=== PATIENT | female | born 1940 | race Caucasian/White ===

== ENCOUNTER 2025-02-22 14:17 | Inpatient (IN) | payer OTHER, SELFPAY ==
[2025-02-22] VITALS (19 sets, daily range): BP systolic 124–157; BP diastolic 56–90; BMI 26.9
[2025-02-22 11:11] LABS: Glucose - Point of Care 128 mg/dl (70-99)
[2025-02-22 11:40] LABS: Hematocrit 25.4 % (37.0-47.0); Hemoglobin 7.9 g/dL (12.0-16.0); Mean Corp Hgb Conc. 31.1 g/dL (33.0-37.0); Mean Corpuscular Volume 85.2 fL (81.0-99.0); Nucleated Red Blood Cells % 0 %; Platelet Count 359 10^3/uL (130-400); Red Cell Dist. Width 12.5 % (11.5-14.5)
[2025-02-22 11:56] LABS: ALT (SGPT) 14 U/L (0-35); AST (SGOT) 22 U/L (14-36); Albumin 4.5 g/dl (3.5-5.0); Alkaline Phosphatase 53 U/L (38-126); Blood Urea Nitrogen 20 mg/dl (7-17); Calcium 10.0 mg/dl (8.4-10.2); Carbon Dioxide 24 mmol/L (22-30); Chloride 105 mmol/L (98-107); Glucose 126 mg/dl (70-99); Potassium 4.5 mmol/L (3.5-5.1); Sodium 138 mmol/L (135-145); Total Protein 7.5 g/dl (6.3-8.2); eGFR > 60.00
[2025-02-22 12:00] LABS: COVID-19 Antigen Negative (Negative)
--- NOTE | 2025-02-22 13:08 | ED.GENMED ---
History of Present Illness
General
Chief Complaint: Weakness
Source: patient and family
Time Seen by Provider: 02/22/25 12:37
History of Present Illness
History of Present Illness:
Note:
CHIEF COMPLAINT(S)
Difficulty walking and maintaining balance.
HISTORY OF PRESENT ILLNESS
The patient is an 85-year-old female presenting with difficulty walking and maintaining balance, first noticed as a gradual onset of weakness. The symptoms became more pronounced a few days ago, with significant issues noted yesterday. The patient
reports that while seated, she feels stable, but upon standing, she experiences shakiness and loss of balance, leading to her sliding down to the floor. She denies falling completely, as she was holding on to prevent a fall. Her daughter has been
assisting her when these episodes occur.
The patient describes experiencing a strong odor from her urine and notes a history of hypokalemia. Recent blood work completed approximately one month ago was reportedly mostly normal, except for slightly off thyroid levels. No hemoglobin levels
from this work are available for comparison at present. The patient reported noticing black stools over a month ago following constipation, with the occurrence linked to laxative use, but no visible red blood in the stool.
The patient admits to taking an cgia-ogn-ujgqntn analgesic, Anacin, which is a combination of aspirin and caffeine, about a month and a half ago for headaches, usually at a dosage of one per day, occasionally two. She also recently started taking
Meloxicam. The clinical suspicion is that these medications may have contributed to gastrointestinal bleeding, causing the observed melena and resulting in acute anemia.
Additional findings from today include a significant drop in hemoglobin levels, registering at 7.9 g/dL compared to previous recordings of 15 g/dL six years ago, consistent with significant anemia. The patient describes feeling pale today and
reports having headaches, neck discomfort, and ear pain.
ADDITIONAL HISTORY OBTAINED FROM SOURCES OTHER THAN THE PATIENT
Per the patients daughter, the patient was noted to be nervous and shaky when walking, with observed balance issues. A strong urine odor was also noted.
EXTERNAL RECORDS REVIEWED
Previous lab results indicate the patients hemoglobin was 15 g/dL six years ago. Current hemoglobin is documented at 7.0 g/dL. Results from recent lab work are pending from her primary physician; contact is underway to obtain these results.
SOCIAL HISTORY
The patient has reported black stools over the past month and has been taking aspirin-containing medications. She has a supportive family member assisting with daily activities due to current mobility challenges.
MEDICATIONS
- Anacin (aspirin and caffeine), usually one per day, occasionally two.
- Meloxicam, recently started.
REVIEW OF SYSTEMS
- Neurological: Shaky and unsteady when standing; feels 'shaky.'
- Gastrointestinal: Reports black stools for over a month, constipation, no red blood in stools.
- Cardiovascular: No chest pain, but reported feeling much better while sitting.
- General: Reports fatigue and weakness.
PHYSICAL EXAM
- General: Alert, no acute distress. Pale appearance.
- Skin: Warm, dry. Conjunctivae noted to be pale.
- Cardiovascular: Regular rhythm, without murmur.
- Respiratory: Non-labored breathing.
- Gastrointestinal: Abdomen soft, non-tender.
- Rectal: Presence of melena confirmed.
- Neurological: Alert and oriented to person, place, time, and situation.
PROBLEM LIST
- Acute Anemia secondary to gastrointestinal bleeding.
- Melena.
PLAN
1. Admit the patient for overnight observation.
2. Obtain blood transfusion to address anemia.
3. Discontinue Aspirin-containing products (Anacin) and Meloxicam.
4. Administer proton pump inhibitors or similar medications to reduce gastric acid and protect against further gastrointestinal bleeding.
5. Consult Gastroenterology for possible endoscopy to evaluate for bleeding sites in the gastrointestinal tract.
6. Monitor hemoglobin levels closely.
7. Attempt to obtain previous lab results from the patients primary care physician to compare hemoglobin levels.
8. Urinalysis to assess the strong urine odor.
DIFFERENTIAL DIAGNOSIS
The Differential Diagnosis includes, in no particular order and is not limited to:
1. Gastrointestinal bleeding due to peptic ulcer disease.
2. Gastric carcinoma.
3. Dunia-Jean tear.
4. Esophageal varices.
5. Diverticular bleeding.
6. Hemorrhoids (though less likely given the melena).
7. Gastritis secondary to nonsteroidal anti-inflammatory drug use.
8. Iron deficiency anemia.
9. Anemia of chronic disease.
10. Renal insufficiency contributing to electrolyte disturbances.
CARE-UPDATE
02/22/25 - 13:19
Reviewed previous records indicating that the patients hemoglobin was 11.0 in early January 2025.
Disposition:
SUMMARY OF ENCOUNTER
An 85-year-old female presented with progressive weakness, particularly when standing or attempting to walk. A rectal exam confirmed melena. She has a history of taking aspirin daily for headaches, sometimes more than once a day, in addition to
recently starting meloxicam. Her hemoglobin levels have decreased from 15 g/dL (years ago) to 11 g/dL in January, and currently measure at 7.9 g/dL. The management plan includes transfusion of two units of blood and initiation of an intravenous
proton pump inhibitor drip to address gastrointestinal bleeding.
DISPOSITION
Admit for overnight observation and management.May benefit from GI consult
ASSESSMENT
The patient presents with acute anemia secondary to suspected gastrointestinal bleeding, likely exacerbated by chronic NSAID use.
EMERGENCY TREATMENTS ADMINISTERED
Initiated IV proton pump inhibitor drip.
MANAGEMENT OF THE PATIENTS CARE WAS DISCUSSED WITH
The hospitalist was consulted for admission and management.
PLAN
1. Administer a blood transfusion with two units to address severe anemia.
2. Discontinue aspirin and meloxicam to prevent further gastrointestinal bleeding.
3. Intravenous proton pump inhibitor therapy is initiated.
4. Consultation with Gastroenterology for potential endoscopy.
INDEPENDENT REVIEW OF LABS AND INTERPRETATION OF TESTS
My independent review of hemoglobin indicates a significant drop to 7.9 g/dL, consistent with anemia and prior low levels of 11 g/dL in January.
FOLLOW-UP INSTRUCTIONS
Follow-up care with primary care physician and Gastroenterology post-discharge to monitor hemoglobin levels and further evaluate gastrointestinal bleeding.
MEDICATION RECONCILIATION
Aspirin use is to be discontinued.
Meloxicam is to be discontinued.
Initiated proton pump inhibitor drip.
MEDICAL DECISION MAKING
-Number and Complexity of Problems Addressed: Chronic conditions affecting care include gastrointestinal bleeding, hypokalemia, and the potential anemia linked to nonsteroidal anti-inflammatory drug use.
-Data:
Category 1
External records reviewed: Previous records indicate hemoglobin of 11.0 g/dL in January.
Reviewed clinical information obtained from the patients daughter regarding observed symptoms.
Category 3
Discussion of management with the hospitalist for admission and coordination of care.
-Risk:
Prescription medication was prescribed; proton pump inhibitor therapy was initiated to prevent further gastrointestinal complications.
DIAGNOSIS
1. Acute blood loss anemia, likely due to gastrointestinal bleeding (ICD-10: D62).
2. Melena (ICD-10: K92.1).
3. NSAID use
Past History
Past History
ED Past Medical History: GERD, Hypercholesterolemia, Hyperthyroidism and Other (urethral prolapse, ataxia (unknown cause)); Negative CVA, HTN or NIDDM
ED Past Surgical History: Negative Cardiac
Social History
Tobacco: Non-smoker
Alcohol: None
Drug: None
Personal: Single
Living: with family
Employment: Not employed
Family History
Family History: Hypertension
Phy Exam
Physical Exam
Physical Exam:
.
Course
Orders/Labs/Results
Orders:
Orders
02/22/25 11:23
COVID-19 Antigen Urgent
Source: Nasal Swab
Complete Blood Count/With Diff Urgent
Comprehensive Metabolic Panel Urgent
Influenza A+B Rapid Molecular Urgent
BON Source: Nasal Swab
Specimen Description:
02/22/25 12:37
Type+Screen Urgent
Urinalysis Reflex To Culture Urgent
Date Specimen was Collected: 02/22/25
Time Specimen was Collected: 13:19
02/22/25 13:07
* Blood Bank Products Routine
Blood Bank Products: *Packed RBC Leuko (PRBC's
Quantity: 2
Transfuse Today: Yes
Reason: Anemia
IV Insert/Care/Rem.- Treatment PRN
02/22/25 13:08
Pantoprazole 80 mg/100 ml Nss [Protonix] 80 mg in 100 ml IV NOW
Pantoprazole [Protonix IV] 80 mg IV NOW STA
02/22/25 13:10
Cardiac Monitoring- Treatment ONCE
02/22/25 13:11
Electrocardiogram (*1) Urgent
Reason for Study: Fatigue / Weakness
EKG- Treatment ONCE
Abnormal Lab Results
02/22/25 02/22/25
11:09 11:23
RBC 2.98 L 10^6/uL
(4.20-5.40)
Hgb 7.9 L g/dL
(12.0-16.0)
Hct 25.4 L %
(37.0-47.0)
MCH 26.5 L pg
(27.0-31.0)
MCHC 31.1 L g/dL
(33.0-37.0)
Abs Immat Gran (auto) 0.1 H 10^3/uL
(0-0.05)
Absolute Lymphs (auto) 1.0 L 10^3/uL
(1.2-3.4)
Immature Gran % 0.7 H %
(0-0.5)
Neutrophils % 77.4 H %
(42.2-75.2)
Lymphocytes % 14.0 L %
(20.5-51.1)
BUN 20 H mg/dl
(7-17)
Glucose 126 H mg/dl
(70-99)
POC Glucose 128 H mg/dl
(70-99)
02/22/25 11:23
02/22/25 11:23
Vital Signs
Initial and Last Documented VS:
Initial Vital Signs
Temp Pulse Resp BP Pulse Ox
97.7 F 87 18 126/66 99
02/22/25 11:06 02/22/25 11:06 02/22/25 11:06 02/22/25 11:06 02/22/25 11:06
Last Documented Vital Signs
Temp Pulse Resp BP Pulse Ox
97.8 F 87 18 126/66 99
02/22/25 13:14 02/22/25 11:06 02/22/25 11:06 02/22/25 11:06 02/22/25 13:10
*Pulse Oximetry
SaO2: 99
Oxygen Mode of Delivery: Room air
Patient hypoxic: no
*Critical Care Note
Total Time (30-74mins, 75-104mins- exclusive of procedures): Not Applicable
ED Attending Note
-
Portions of this chart may have been created with voice recognition software.� Occasional wrong word or��sound alike� substitutions may have occurred due to the inherent limitations of voice recognition software.
Discharge Plan
Departure
Patient Disposition: Admit
Date of Disposition: 02/22/25
Time of Disposition: 13:15
Admit to: Telemetry
Presentation/result/management discussed w/ accepting MD/DO: Hospitalist
Discharge Problem:
Symptomatic anemia, NSAID long-term use, GI bleed
Prescriptions:
No Action
polyethylene glycol 3350 17 GRAMS powder in packet
17 grams PO PRN PRN (Reason: constipation)
Multivitamin
1 tab PO DAILY
Synthroid:
125 mcg PO DAILY
nitrofurantoin macrocrystal 50 MG capsule
50 mg PO TID
simvastatin 40 MG tablet
40 mg PO HS
aspirin 81 MG tablet,chewable
81 mg PO DAILY
omeprazole magnesium [Prilosec OTC] 20 MG tablet,delayed release (DR/EC)
20 mg PO DAILY
Interventions
Interventions:
*Risk Screen - Suicide Last Done: 02/22/25 11:07
*General Assessment Last Done: 02/22/25 11:07
*Neglect/Abuse Screening Last Done: 02/22/25 11:07
*ED COVID-19 Vaccine History Last Done: 02/22/25 11:07
*ED Influenza Vaccine History Last Done: 02/22/25 11:07
Discharge Date and Time
Print Language: FAROESE
[2025-02-22] MEDS: PROTONIX IV 80 MG IV (13:52)
[2025-02-22] MEDS: PROTONIX 100 IV (13:52)
--- NOTE | 2025-02-22 14:05 | HPS.HSE ---
Family Physician
-
Family Physician: NOT KNOW UNKNOWN - PT DOES
Chief Complaint
-
weakness
History of Present Illness
85-year-old female past medical history of TIA, hyperlipidemia, hypothyroidism, hypertension, presenting with difficulty walking and maintaining balance and weakness. Symptoms became more pronounced a few days ago. With standing she experiences
shakiness and loss of balance leading to sliding down to the floor. Denies falling completely. She has been having a strong odor from the urine.
Patient had blood work a month ago showing slightly abnormal thyroid levels.
Patient had black stools a month ago followed by constipation. Patient was taking gzkd-suo-fjykqnu analgesic Anacin which is a combination of aspirin and caffeine a month and a half ago for headaches once a day occasionally 2. She recently also
started taking meloxicam.
No prior EGD or colonoscopy
Patient describes feeling pale today and having headache, neck discomfort and ear pain. No abdominal pain.
Does not smoke or drink alcohol.
No family history of GI bleeding.
Medical History
Past Medical History
Past Medical History: Reports Other (TIA, hyperlipidemia, hypothyroidism, hypertension)
Past Surgical History: Reports None
Social History
Tobacco: Non-smoker
Alcohol: None
Drug: None
Family History
Family History: Not pertinent
Allergies / Home Medications
Allergies reflects when Allergies were last updated in [email or web address].
Home Medications with original date entered in [email or web address]
Allergy/Medication List:
Allergies
Allergy/AdvReac Type Severity Reaction Status Date / Time
No Known Allergies Allergy Unverified 04/03/13 14:27
Home Medications
Multivitamin 1 tab PO DAILY 05/12/12
Synthroid: 125 mcg PO DAILY 05/12/12
polyethylene glycol 3350 17 gram oral powder packet 17 grams PO PRN PRN constipation 05/12/12
aspirin 81 mg chewable tablet 81 mg PO DAILY 04/03/13
nitrofurantoin macrocrystal 50 mg capsule 50 mg PO TID 04/03/13
omeprazole magnesium 20 mg tablet,delayed release (Prilosec OTC) 20 mg PO DAILY 04/03/13
simvastatin 40 mg tablet 40 mg PO HS 04/03/13
Review of Systems
-
History Source: Patient
A 12 point ROS was completed and negative except as noted: Yes
Constitutional: Reports No Symptoms
EENT: Reports No Symptoms
Respiratory: Reports No Symptoms
Cardiac: Reports No Symptoms
Abdomen/GI: Reports See HPI
: Reports No Symptoms
Musculoskeletal: Reports No Symptoms
Skin: Reports No Symptoms
Neurological: Reports No Symptoms
Endocrine: Reports No Symptoms
Hematologic/Lymphatic: Reports No Symptoms
Psych: Reports No Symptoms
Physical Exam
Vital Signs
Vital Signs
Temp Pulse Resp BP Pulse Ox
97.8 F 87 18 126/66 99
02/22/25 13:14 02/22/25 11:06 02/22/25 11:06 02/22/25 11:06 02/22/25 13:10
Physical Exam
General: Well Developed, Well Nourished and No Apparent Distress
HEENT: NormoCephalic, Moist mucous membranes and Atraumatic
Respiratory: Clear
Cardiac: S1/S2 and Regular Rhythm; No Murmur or Rub
GI: Soft, Non Tender, Non Distended and Normal Bowel Sounds; No Organomegaly
Rectal: Deferred by Provider
Musculoskeletal: No Clubbing, No Cyanosis and No Edema
Skin: No Rash
Neuro: Nonfocal/grossly intact
Laboratory Results
-
02/22/25 11:23
02/22/25 11:23
Laboratory Results
Total Bilirubin 0.5 mg/dl (0.2-1.3) 02/22/25 11:23
AST 22 U/L (14-36) 02/22/25 11:23
ALT 14 U/L (0-35) 02/22/25 11:23
Alkaline Phosphatase 53 U/L (38-126) 02/22/25 11:23
Data Reviewed
-
Lab Data: Labs Reviewed by me
Old Records: Reviewed
Impression/Plan
-
IMPRESSION:
PLAN:
# Normocytic anemia secondary to symptomatic blood loss anemia from upper GI bleeding from recent aspirin/meloxicam use
- 2 units of blood
- Check iron studies, B12
- Protonix 40 twice daily
- Clear liquid diet
-Hold aspirin, NSAIDs
- GI consulted
# Malodorous urine
- Urinalysis pending
History of TIA
- Continue statin
Hyperlipidemia
Hypothyroidism
- Continue levothyroxine
Essential hypertension
Uterine prolapse with pessary
Full code
DVT prophylaxis�SCDs
Clear liquid diet
--- NOTE | 2025-02-22 15:13 | CON.GI ---
Addendum entered and electronically signed by Kristan Hernandez DO 02/22/25 15:54:
The patient was seen and examined by me independently in collaboration with the nurse practitioner.
Past medical history/social history/medications/allergies/family history reviewed.
Lab data and imaging data reviewed.
Briefly, Deisy Fish is an 85 y.o female with pmhx HTN, GERD on omperazole (no prior EGD), HLD, hx TIA who presents with symptomatic anemia, hgb found to be 7.9, down from 11 on 01/14. BUN mildly elevated to 20. She reports constipation, but last
stool was black, about 3 days ago. She admits to taking Meloxicam recently.
c/f UGIB likely 2/2 PUD vs. erosive gastritis/dudoenitis vs. AVM vs. diuealfoy vs. other
2 large peripheral Gauge IVs
Received 1 unit PRBC in ER
Active T&C
PPI gtt
IVF
Keep NPO for EGD today
Discussed with daughter at bedside.
Original Note:
Consultation
-
Date/Time Consultation Requested: 02/22/25 1430
Date/Time Consultation Performed: 02/22/25 1515
Requesting Provider: Roger Elliott MD
Performing Provider: BREANNA Gorman, Pam Hernandez DO
Reason for Consultation: GI bleed
Medical History
Chief Complaint / HPI
Chief Complaint: black stools weakness
History of Present Illness:
Pt is an 85o with hx HTN, Hyperlipidemia, GERD on chronic Omeprazole, TIA, with recent start of Meloxicam along with taking Tylenol and Anacin for headache and joint pain. She admits to dizziness with weakness and constipation a few days ago and
noting recent black stools with last stool 3 days ago. She has chronic GERD and admits to dysphagia which started today but denies odynophagia, nausea, vomiting, abdominal pain, diarrhea or red stools. NO hx EGD or colonoscopy in past. prior hbg
11 on 01/14 and now 7.9 on admission. Rectal in ER with melena.
Past Medical History
Past Medical History: CVA (TIA), GERD, HTN, Hypercholesterolemia and Other (gait dysfunction, migraines, anxiety )
Social History
Tobacco: Non-Smoker
Alcohol: None
Drug: None
Living: With Family
Employment: Retired
Family History
Family History: Other (no family hx GI malignancies )
Allergies / Home Medications
Allergy/AdvReac Type Severity Reaction Status Date / Time
No Known Allergies Allergy Unverified 04/03/13 14:27
�Medication �Instructions �Recorded
Multivitamin 1 tab PO DAILY 05/12/12
Synthroid: 125 mcg PO DAILY 05/12/12
polyethylene glycol 3350 17 gram 17 grams PO PRN PRN constipation 05/12/12
oral powder packet
aspirin 81 mg chewable tablet 81 mg PO DAILY 04/03/13
nitrofurantoin macrocrystal 50 mg 50 mg PO TID 04/03/13
capsule
omeprazole magnesium 20 mg 20 mg PO DAILY 04/03/13
tablet,delayed release (Prilosec
OTC)
simvastatin 40 mg tablet 40 mg PO HS 04/03/13
Review of Systems
-
History Source: Patient and Family
Constitutional: Reports Weight Gain (slight gain )
EENT: Reports No Symptoms
Respiratory: Reports No Symptoms
Abdomen/GI: Reports Abdominal Pain
: Reports Other (foul smelling urine )
Musculoskeletal: Reports Joint Pain
Neurological: Reports Dizzy, Headache and Weakness
Endocrine: Reports No Symptoms
Hematologic/Lymphatic: Reports Bleeding
Vital Signs
Temp Pulse Resp BP Pulse Ox
98.3 F 85 18 145/69 99
02/22/25 14:57 02/22/25 14:57 02/22/25 14:57 02/22/25 14:57 02/22/25 14:57
Physical Exam
Exam
General: Other (pale appearing )
HEENT: Normocephalic and Anicteric
Respiratory: Clear
Cardiac: Regular Rhythm
GI: Soft, Non Tender and Non Distended
Rectal: Other (melena )
Musculoskeletal: No Clubbing and No Cyanosis
Skin: Warm and Dry
Neuro: Awake, Alert and AO x 3
Psych: Calm
Results
WBC 6.8 10^3/uL (4.8-10.8) 02/22/25 11:23
Hgb 7.9 g/dL (12.0-16.0) L 02/22/25 11:23
Hct 25.4 % (37.0-47.0) L 02/22/25 11:23
MCV 85.2 fL (81.0-99.0) 02/22/25 11:23
Plt Count 359 10^3/uL (130-400) 02/22/25 11:23
Absolute Neuts (auto) 5.2 10^3/uL (1.4-6.5) 02/22/25 11:23
Sodium 138 mmol/L (135-145) 02/22/25 11:23
Potassium 4.5 mmol/L (3.5-5.1) 02/22/25 11:23
Chloride 105 mmol/L (98-107) 02/22/25 11:23
Carbon Dioxide 24 mmol/L (22-30) 02/22/25 11:23
BUN 20 mg/dl (7-17) H 02/22/25 11:23
Creatinine 0.9 mg/dL (0.6-1.0) 02/22/25 11:23
Calcium 10.0 mg/dl (8.4-10.2) 02/22/25 11:23
Total Bilirubin 0.5 mg/dl (0.2-1.3) 02/22/25 11:23
AST 22 U/L (14-36) 02/22/25 11:23
ALT 14 U/L (0-35) 02/22/25 11:23
Alkaline Phosphatase 53 U/L (38-126) 02/22/25 11:23
Diagnostic Image Results:
Prior GI Procedures:
EGD: none
Colonoscopy: none
Assessment / Plan
-
Pt is an 85o with hx HTN, Hyperlipidemia, GERD on chronic Omeprazole, TIA, with recent start of Meloxicam along with taking Tylenol and Anacin for headache and joint pain. She admits to dizziness with weakness and constipation a few days ago and
noting recent black stools with last stool 3 days ago. She has chronic GERD and admits to dysphagia which started today but denies odynophagia, nausea, vomiting, abdominal pain, diarrhea or red stools. NO hx EGD or colonoscopy in past. prior hbg
11 on 01/14 and now 7.9 on admission. Rectal in ER with melena
-anemia with drop in hbg over last month
-melena
-recent start of Meloxicam
-GERD on chronic PPI
other med problems:
HTN, Hyperlipidemia, GERD on chronic Omeprazole, hypercholesterolemia, TIA
PLAN:
etiology of melena and anemia related to PUD with recently started Meloxicam with anacin vs ectasia, vs mass vs other
plan for EGD today
transfusion running now
NPO- last atet 9:30 AM
NSAID avoidance
PPI
trend hbg
family updated
-
-
Thank you for consultation and allowing me to participate in the patient's care. Please call the oncology consultant GI physician during the after hours with any questions or concerns.
--- NOTE | 2025-02-22 15:15 | CM ---
Chart reviewed and spoke with pt and dtr Ella at ED bedside
Lives in a 2 story home with dtr Ella [address] 1st floor set up
Pivots to w/c for ambulation. Dtr assists at home
DME walker , w/c and toilet rails, shower chair
PCP Dr. Jennifer Jhaveri
dtr notified PCP about admission
RX plan yes
Pharmacy [facility] in [place]
[facility] ; dtr would like to use them again
no hx of SNF
CM will follow up with any dcp needs
[2025-02-22 15:43] LABS: Iron < 20 ug/dl (37-170)
[2025-02-22 15:50] LABS: Total Iron Binding Capacity 514 ug/dl (265-497)
[2025-02-22 16:21] LABS: Ferritin 9.3 ng/ml (11.1-264.0)
[2025-02-22 16:36] LABS: Vitamin B12 671 pg/ml (239-931)
--- NOTE | 2025-02-22 18:39 | TRANSFER ---
pt arrived from PACU aftr EGD with blood transfusing (1st unit), and protonix gtt. VSS. pt AAOx3, no complaints.
[2025-02-22] MEDS: ANESTHETIC LOZENGE 1 LOZENGE PO ×2 (19:06→22:54)
[2025-02-23] MEDS: TYLENOL 650 MG PO ×2 (00:09→09:44)
[2025-02-23 04:01] VITALS: BP 131/78
[2025-02-23 07:30] VITALS: BP 134/78
--- NOTE | 2025-02-23 07:30 | W.PN.HOSP.TC ---
Addendum entered and electronically signed by Juan R Mccoy MD 02/23/25 14:34:
Attending�addendum: Patient was seen on 02/22/2025.
I saw and evaluated the patient. I reviewed the resident�s note and agree with findings and plan as documented in the resident�s note. Patient admitted with Gi bleeding S/P EGD yesterday
Physical�exam:
GENERAL : Patient is awake, alert, oriented x3
HEENT: Nonicteric sclerae, PERRLA, EOMI. Oropharynx clear. Moist mucous membranes. Conjunctivae appear well perfused.
CHEST: Chest wall is nontender.
HEART: Regular rate and rhythm without murmurs.
LUNGS: Clear to auscultation bilaterally.
ABDOMEN: Soft, positive bowel sounds, nontender, no organomegaly.
RECTAL: Deferred.
MUSCLES/EXTREMITIES: No abnormal range of motion, no swelling.SKIN: No rash, no excessive bruising, petechiae, or purpura.
NEUROLOGIC: Cranial nerves II-XII intact without motor/sensory deficit.
�
Assessment/plan:
Lower GI bleeding.
S/P EGD shows: torturous esophagus, large hiatal hernia with a few Siva ulcers that were treated with thermal therapy, a few recently bleeding angioectasias of the stomach treated with argon plasma, a few gastric polyps, nonbleeding gastric
ulcers with no stigmata of bleeding, normal first portion of the duodenum and second portion of the duodenum, tongue of abnormal mucosa found just inferior to the gastroesophageal junction which appeared to be irritated but with no active bleed.
GI signed off
protnonix
Acute blood loss anemia
-Sore throat:
History of TIA:
Continue statin
Hyperlipidemia:
Hypothyroidism:
Continue levothyroxine
Essential hypertension:
FULL CODE STATUS
DVT prophylaxis�SCDs
Stress ulcer prophylaxis: Protonix
�
Total time spent on today�s encounter was 55 minutes which included time spent in counseling the patient/family regarding diagnosis and treatment plan as listed above, goals of care, and symptom management. Case was discussed with nursing staff,
specialists, and care coordinators/case management. All labs and imaging personally reviewed by me. Remainder the time spent in detailed review of previous records, lab data, imaging, and other medical provider documentation.
Original Note:
Today's Communication/Plan
-
Prochlorperazine given for GI upset
Ferrous sulfate given for iron deficiency anemia
Benzocaine/menthol lozenge given for sore throat following EGD
Assessment / Plan
Assessment / Plan
Assessment/Plan:
-Normocytic anemia secondary to symptomatic blood loss anemia from upper GI bleeding from recent aspirin/meloxicam use: Stable/monitoring
-Iron deficiency anemia: Stable/monitoring
2 units of blood given in ED
Patient has low iron with a value less than 20 and a TIBC of 514 indicating iron deficiency anemia
Vitamin B12 normal at 671 on 02/22/2025
Protonix 40 twice daily
Clear liquid diet
Hold aspirin, NSAIDs
GI consulted - appreciate GI reccomendations -gastroenterology believe that this patient likely had an upper GI bleed secondary to peptic ulcer disease versus erosive gastritis/duodenitis versus AVM versus diuealfoy, vs other. They recommended
that the patient undergo an EGD
EGD conducted on 02/22/2025 showed a torturous esophagus, large hiatal hernia with a few Siva ulcers that were treated with thermal therapy, a few recently bleeding angioectasias of the stomach treated with argon plasma, a few gastric polyps,
nonbleeding gastric ulcers with no stigmata of bleeding, normal first portion of the duodenum and second portion of the duodenum, tongue of abnormal mucosa found just inferior to the gastroesophageal junction which appeared to be irritated but with
no active bleed.
Following EGD gastroenterology recommended clear liquids and if hemoglobin was stable to advance to a low residue diet if the patient was able to tolerate clear liquid
Oral iron supplementation given
PPI will be IV twice daily, then will transition to oral twice daily for 8 weeks, then daily - as per GI recommendations
-Sore throat: Stable/monitoring
Patient has a sore throat likely secondary to recent endoscopy procedure
-Malodorous urine: Stable/monitoring
Urinalysis pending
Culture negative
History of TIA: Stable/monitoring
Continue statin
Hyperlipidemia: Stable/monitoring
Hypothyroidism: Stable/monitoring
Continue levothyroxine
Essential hypertension: Stable/monitoring
Uterine prolapse with pessary: Stable/monitoring
FULL CODE STATUS
DVT prophylaxis�SCDs
Stress ulcer prophylaxis: Protonix
Imaging: N/A
Procedures:
- Endoscopy procedure conducted on 02/22/2025:
Tortuous esophagus.
Large hiatal hernia with a few Siva ulcers. Treated with thermal therapy.
A few recently bleeding angioectasias in the stomach. Treated with argon plasma coagulation (APC).
A few gastric polyps.
Non-bleeding gastric ulcers with no stigmata of bleeding.
Normal first portion of the duodenum and second portion of the duodenum.
One tongue of abnormal mucosa found just inferior to the GE junction, appeared to be irritated mucosa. No ulcer bed. Not biopsied in setting of active bleeding.
No specimens collected.
Anticipated Discharge: 24 - 48 hours
Subjective/Interval History
-
Date of Service: February 23, 2025
Met with patient at the bedside. Overall she is doing well and offers no complaints at the present time. She was hungry and hoping to eat breakfast but had not received her breakfast quite yet. I recommended that she order something from the
clear liquid diet and that if she tolerated her diet we will advance her to a low residue diet.
Objective Data
-
Labs:
Laboratory Results
02/23/25
07:30
WBC 6.4
Hgb 9.4 L
Hct 28.4 L
Plt Count 296
Sodium 137
Potassium 4.2
Chloride 108 H
Carbon Dioxide 24
BUN 14
Creatinine 0.8
Glucose 95
Calcium 9.0
Total Bilirubin 0.8
AST 21
ALT 11
Alkaline Phosphatase 53
Vital Signs:
Vital Signs
Temp Pulse Resp BP Pulse Ox
98.8 F 85 16 117/65 93
02/23/25 11:55 02/23/25 11:55 02/23/25 11:55 02/23/25 11:55 02/23/25 11:55
I&O
02/22/25 02/23/25 02/24/25
06:59 06:59 06:59
Intake Total 500 / 500
Balance 500 / 500
Review of Systems
-
History Source: Patient
Constitutional: Reports No Symptoms
Respiratory: Reports No Symptoms
Cardiac: Reports No Symptoms
Abdomen/GI: Reports No Symptoms
Breast: Reports No Symptoms
Genitourinary: Reports No Symptoms
Musculoskeletal: Reports No Symptoms
Skin: Reports No Symptoms
Neuro: Reports No Symptoms
Endocrine: Reports No Symptoms
Hematologic / Lymphatic: Reports No Symptoms
Physical Exam
-
General: Well Developed and No Apparent Distress
HEENT: Normocephalic, Atraumatic and Moist Mucous Membranes
Respiratory: Clear to Auscultation
Cardiac: Regular Rhythm and S1/S2; Negative Murmur, Rub or Gallop
GI: Soft, Nontender, Nondistended and Normal Bowel Sounds; Negative Organomegaly
Rectal: Deferred by Provider
Musculoskeletal: No Cyanosis and No Edema
Skin: Negative Rash
Neuro: Nonfocal/Grossly Intact
[2025-02-23] MEDS: FEOSOL 325 MG PO (07:49)
[2025-02-23] MEDS: PROTONIX IV 40 MG IV ×2 (07:49→20:51)
[2025-02-23] MEDS: NSS (PRESERVATIVE FREE) 10 ML IV ×2 (07:50→20:51)
[2025-02-23 08:10] LABS: Hematocrit 28.4 % (37.0-47.0); Hemoglobin 9.4 g/dL (12.0-16.0); Mean Corp Hgb Conc. 33.1 g/dL (33.0-37.0); Mean Corpuscular Volume 85.5 fL (81.0-99.0); Nucleated Red Blood Cells % 0 %; Platelet Count 296 10^3/uL (130-400); Red Cell Dist. Width 13.3 % (11.5-14.5)
[2025-02-23 08:45] LABS: ALT (SGPT) 11 U/L (0-35); AST (SGOT) 21 U/L (14-36); Albumin 3.7 g/dl (3.5-5.0); Alkaline Phosphatase 53 U/L (38-126); Blood Urea Nitrogen 14 mg/dl (7-17); Calcium 9.0 mg/dl (8.4-10.2); Carbon Dioxide 24 mmol/L (22-30); Chloride 108 mmol/L (98-107); Estimated Creatinine Clearance 43 ml/min; Glucose 95 mg/dl (70-99); Potassium 4.2 mmol/L (3.5-5.1); Sodium 137 mmol/L (135-145); Total Protein 6.4 g/dl (6.3-8.2); eGFR > 60.00
[2025-02-23] MEDS: ANESTHETIC LOZENGE 1 LOZENGE PO (09:44)
[2025-02-23 11:55] VITALS: BP 117/65
[2025-02-23 15:09] LABS: Urine Character Clear (Clear)
[2025-02-23] MEDS: FERRLECIT 110 MG IV (15:13)
[2025-02-23 15:17] LABS: Urine Red Blood Cell 0-2 /HPF (0-2); Urine White Cell 26-30 /HPF (0-5)
[2025-02-23 15:52] VITALS: BP 134/78
[2025-02-23 19:53] VITALS: BP 146/83
[2025-02-23 23:25] VITALS: BP 151/79
[2025-02-24 03:15] VITALS: BP 158/74
--- NOTE | 2025-02-24 04:27 | PTCARENOTE ---
Pt took off heart monitor for the second time in a half hour. When I went to go put it back on, pt stated that she wanted it off and that 'there's nothing wrong with my heart, I don't want it on, you can tell the Doctor.' [place] Provider Kaylee
Millie notified.
--- NOTE | 2025-02-24 04:41 | W.PN.UPDATE ---
Update Note
Progress Note Update
pt refusing heart monitor
[2025-02-24] MEDS: NSS (PRESERVATIVE FREE) 10 ML IV ×2 (07:23→20:46)
[2025-02-24] MEDS: PROTONIX IV 40 MG IV ×2 (07:23→20:51)
[2025-02-24] MEDS: FEOSOL 325 MG PO (07:24)
[2025-02-24 07:25] VITALS: BP 149/98
[2025-02-24] MEDS: STERILE WATER FOR INJECTION 10 ML IV (09:30)
[2025-02-24] MEDS: ROCEPHIN 1000 MG IV (09:30)
--- NOTE | 2025-02-24 10:43 | W.PN.HOSP.TC ---
Today's Communication/Plan
-
Advance diet to low residual diet.
IV iron
Assessment / Plan
Assessment / Plan
Impression:
85-year-old female past medical history of TIA, hyperlipidemia, hypothyroidism, hypertension, presenting with difficulty walking and maintaining balance and weakness. Symptoms became more pronounced a few days ago. With standing she experiences
shakiness and loss of balance leading to sliding down to the floor. Denies falling completely. She has been having a strong odor from the urine. Patient had black stools a month ago followed by constipation. Patient was taking [id number]
analgesic Anacin which is a combination of aspirin and caffeine a month and a half ago for headaches once a day occasionally 2. She recently also started taking meloxicam.
Admitted under hospitalist service, seen by GI, underwent EGD, status post blood transfusion, also started Rocephin for UTI.
Assessment/Plan:
Acute blood loss anemia secondary to GI bleeding
Iron deficiency anemia
upper GI bleeding from recent aspirin/meloxicam use.
Status post 2 units of blood transfusion.
Patient has low iron with a value less than 20 and a TIBC of 514 indicating iron deficiency anemia
Vitamin B12 normal at 671 on 02/22/2025
Protonix 40 twice daily
Clear liquid diet--> advance to full--> advance to low residue
Hold aspirin, NSAIDs
Status post EGD showed:
torturous esophagus, large hiatal hernia with a few Siva ulcers that were treated with thermal therapy, a few recently bleeding angioectasias of the stomach treated with argon plasma, a few gastric polyps, nonbleeding gastric ulcers with no
stigmata of bleeding, normal first portion of the duodenum and second portion of the duodenum, tongue of abnormal mucosa found just inferior to the gastroesophageal junction which appeared to be irritated but with no active bleed.
GI signed off
Acute UTI
Continue Rocephin.
Pending Culture
Acute metabolic encephalopathy.
Secondary to sepsis/UTI
Slightly improved
Sore throat:
Possible secondary to endoscopy.
Improved.
Hyperlipidemia
Continue statin
Hypothyroidism
Continue levothyroxine
CODE STATUS: Full code
DVT prophylaxis: SCDS
Diet: Regular diet
Family communication: Discussed with daughter Ella is the phone
Disposition: Advance diet to low residual diet.
IV iron
Total time spent on today's encounter was 55 minutes which included time spent in counseling the patient/family regarding diagnosis and treatment plan as listed above, goals of care, and symptom management. Case was discussed with nursing staff,
specialists, and care coordinators/case management. All labs and imaging personally reviewed by me. Remainder the time spent in detailed review of previous records, lab data, imaging, and other medical provider documentation.
Anticipated Discharge: Within 24 hours
Subjective/Interval History
-
Date of Service: February 24, 2025
Objective Data
-
Labs:
Laboratory Results
02/24/25
10:36
WBC Pending
Hgb Pending
Hct Pending
Plt Count Pending
Sodium Pending
Potassium Pending
Chloride Pending
Carbon Dioxide Pending
BUN Pending
Creatinine Pending
Glucose Pending
Calcium Pending
Vital Signs:
Vital Signs
Temp Pulse Resp BP Pulse Ox
98.1 F 112 18 149/98 97
02/24/25 07:25 02/24/25 07:25 02/24/25 07:25 02/24/25 07:25 02/24/25 07:25
I&O
02/23/25 02/24/25 02/25/25
06:59 06:59 06:59
Intake Total 500 / 500 1500 / 1500
Balance 500 / 500 1500 / 1500
[2025-02-24] MEDS: DULCOLAX 10 MG RECTAL (11:07)
[2025-02-24 11:25] LABS: Blood Urea Nitrogen 12 mg/dl (7-17); Calcium 9.3 mg/dl (8.4-10.2); Carbon Dioxide 22 mmol/L (22-30); Chloride 109 mmol/L (98-107); Estimated Creatinine Clearance 49 ml/min; Glucose 113 mg/dl (70-99); Potassium 3.9 mmol/L (3.5-5.1); Sodium 137 mmol/L (135-145); eGFR > 60.00
[2025-02-24 11:45] LABS: Hematocrit 31.4 % (37.0-47.0); Hemoglobin 9.6 g/dL (12.0-16.0); Mean Corp Hgb Conc. 30.6 g/dL (33.0-37.0); Mean Corpuscular Volume 88.5 fL (81.0-99.0); Platelet Count 324 10^3/uL (130-400); Red Cell Dist. Width 13.4 % (11.5-14.5)
[2025-02-24 13:20] VITALS: BP 143/76; PULSE 107; O2SAT 95
[2025-02-24] MEDS: FERRLECIT 110 MG IV (14:08)
[2025-02-24 15:20] VITALS: BP 146/79
[2025-02-24] MEDS: ZOFRAN 4 MG IV (17:19)
[2025-02-24 23:24] VITALS: BP 146/89
[2025-02-25 07:15] VITALS: BP 126/69
[2025-02-25] MEDS: FEOSOL 325 MG PO ×2 (08:06→21:36)
[2025-02-25] MEDS: NSS (PRESERVATIVE FREE) 10 ML IV ×2 (08:06→21:37)
[2025-02-25] MEDS: PROTONIX IV 40 MG IV ×2 (08:07→21:38)
[2025-02-25 08:34] LABS: Hematocrit 35.0 % (37.0-47.0); Hemoglobin 10.7 g/dL (12.0-16.0); Mean Corp Hgb Conc. 30.6 g/dL (33.0-37.0); Mean Corpuscular Volume 89.3 fL (81.0-99.0); Platelet Count 325 10^3/uL (130-400); Red Cell Dist. Width 13.7 % (11.5-14.5)
[2025-02-25 09:01] LABS: Blood Urea Nitrogen 12 mg/dl (7-17); Calcium 9.5 mg/dl (8.4-10.2); Carbon Dioxide 24 mmol/L (22-30); Chloride 109 mmol/L (98-107); Estimated Creatinine Clearance 49 ml/min; Glucose 94 mg/dl (70-99); Magnesium 2.2 mg/dl (1.6-2.3); Potassium 4.3 mmol/L (3.5-5.1); Sodium 140 mmol/L (135-145); eGFR > 60.00
[2025-02-25] MEDS: ROCEPHIN 1000 MG IV (10:14)
[2025-02-25] MEDS: STERILE WATER FOR INJECTION 10 ML IV (10:14)
--- NOTE | 2025-02-25 12:39 | W.PN.HOSP.TC ---
Today's Communication/Plan
-
Tolerating diet, plan to discharge home with home PT today.
Assessment / Plan
Assessment / Plan
Impression:
85-year-old female past medical history of TIA, hyperlipidemia, hypothyroidism, hypertension, presenting with difficulty walking and maintaining balance and weakness. Symptoms became more pronounced a few days ago. With standing she experiences
shakiness and loss of balance leading to sliding down to the floor. Denies falling completely. She has been having a strong odor from the urine. Patient had black stools a month ago followed by constipation. Patient was taking [id number]
analgesic Anacin which is a combination of aspirin and caffeine a month and a half ago for headaches once a day occasionally 2. She recently also started taking meloxicam.
Admitted under hospitalist service, seen by GI, underwent EGD, status post blood transfusion, also started Rocephin for UTI.
Received IV iron, physical recommended home PT.
Assessment/Plan:
Acute blood loss anemia secondary to GI bleeding
Iron deficiency anemia
upper GI bleeding from recent aspirin/meloxicam use.
Status post 2 units of blood transfusion.
Patient has low iron with a value less than 20 and a TIBC of 514 indicating iron deficiency anemia
Vitamin B12 normal at 671 on 02/22/2025
Protonix 40 twice daily
Clear liquid diet--> advance to full--> advance to low residue
Tolerating low residue.
Hold aspirin, NSAIDs
Status post EGD showed:
torturous esophagus, large hiatal hernia with a few Siva ulcers that were treated with thermal therapy, a few recently bleeding angioectasias of the stomach treated with argon plasma, a few gastric polyps, nonbleeding gastric ulcers with no
stigmata of bleeding, normal first portion of the duodenum and second portion of the duodenum, tongue of abnormal mucosa found just inferior to the gastroesophageal junction which appeared to be irritated but with no active bleed.
GI signed off
Acute UTI
Continue Rocephin.
Culture gram-negative wilma
Acute metabolic encephalopathy.
Secondary to sepsis/UTI
Slightly improved
Sore throat:
Possible secondary to endoscopy.
Improved.
Hyperlipidemia
Continue statin
Hypothyroidism
Continue levothyroxine
CODE STATUS: Full code
DVT prophylaxis: SCDS
Diet: Regular diet
Family communication: Discussed with daughter Ella is the phone
Disposition: Tolerating diet, plan to discharge home with home PT today.
Total time spent on today's encounter was 55 minutes which included time spent in counseling the patient/family regarding diagnosis and treatment plan as listed above, goals of care, and symptom management. Case was discussed with nursing staff,
specialists, and care coordinators/case management. All labs and imaging personally reviewed by me. Remainder the time spent in detailed review of previous records, lab data, imaging, and other medical provider documentation.
Anticipated Discharge: Today
Subjective/Interval History
-
Date of Service: February 25, 2025
Patient seen and examined at bedside, denies any chest pain or shortness of breath, no abdominal pain, no nausea, no vomiting, no diarrhea or constipation.
Objective Data
-
Labs:
Laboratory Results
02/25/25
08:00
WBC 7.8
Hgb 10.7 L
Hct 35.0 L
Plt Count 325
Sodium 140
Potassium 4.3
Chloride 109 H
Carbon Dioxide 24
BUN 12
Creatinine 0.7
Glucose 94
Calcium 9.5
Vital Signs:
Vital Signs
Temp Pulse Resp BP Pulse Ox
98.2 F 81 16 126/69 92
02/25/25 07:15 02/25/25 07:15 02/25/25 07:15 02/25/25 07:15 02/25/25 07:15
I&O
02/24/25 02/25/25 02/26/25
06:59 06:59 06:59
Intake Total 1500 / 1500
Balance 1500 / 1500
Physical Exam
-
General: Well Developed and No Apparent Distress
HEENT: Normocephalic, Atraumatic and Moist Mucous Membranes
Respiratory: Clear to Auscultation
Cardiac: Regular Rhythm and S1/S2; Negative Murmur, Rub or Gallop
GI: Soft, Nontender, Nondistended and Normal Bowel Sounds; Negative Organomegaly
Rectal: Deferred by Provider
Musculoskeletal: No Cyanosis and No Edema
Skin: Negative Rash
Neuro: Nonfocal/Grossly Intact
--- NOTE | 2025-02-25 12:51 | PN.CDI ---
CDI
- -
CDI:
Physician Documentation Request
Admit Date: 02/22/25 14:17
Dear Doctor Nadine,
Clinical Indicators:
Patient admitted with acute blood loss anemia due to GI bleeding.
02/22 H & P, '...presenting with difficulty walking and maintaining balance and weakness. Symptoms became more pronounced a few days ago. With standing she experiences shakiness and loss of balance leading to sliding down to the floor...She has
been having a strong odor from the urine.'
02/24 PN, 'Acute UTI...Acute metabolic encephalopathy. Secondary to sepsis/UTI Slightly improved.'
Please clarify the following:
Sepsis was present on admission.
Sepsis was not present on admission.
Other, please specify
Use of terms such as suspected, likely, concern for, or probable (associated with a specific diagnosis that is being evaluated, monitored, or treated as if it exists) are acceptable and can be coded in the inpatient setting, when documented at the
time of discharge.
Thank you,
LYNDSAY Henson RN
CDI Specialist
available via tiger text
Please use your independent medical judgment in providing your response.
--- NOTE | 2025-02-25 14:39 | CM ---
Reviewed PT OT evals with patient . Pt declined SNF/
Pt requested CM speak with dgt Ella.
Spoke with Ella dgt she lives with . Dgt requested [facility] PCP DR Jennifer Paz.
Jenn[facility] liaison notified of Referral.
Family will transport home.
PLAN Home with [facility]
[2025-02-25 15:00] VITALS: BP 131/66
--- NOTE | 2025-02-25 15:01 | VNURNOTE ---
Chart reviewed.. Home Health Liaison spoke with patient's daughter Ella to discuss [facility] nurse/therapy, visits, schedule and homebound status. She is agreeable and understands that visits at home will be 2-3 x per week to assess and teach medical
management. Daughter is aware that [facility] will contact them for start of care in 1-2 days after discharge from .
PM [facility] referral completed in [facility].
[2025-02-25 23:23] VITALS: BP 125/70
[2025-02-26 07:10] VITALS: BP 140/72
[2025-02-26] MEDS: FEOSOL 325 MG PO (07:51)
[2025-02-26] MEDS: PROTONIX IV 40 MG IV (07:51)
[2025-02-26] MEDS: NSS (PRESERVATIVE FREE) 10 ML IV (07:54)
[2025-02-26] MEDS: ROCEPHIN 1000 MG IV (09:04)
[2025-02-26] MEDS: STERILE WATER FOR INJECTION 10 ML IV (09:04)
[2025-02-26 11:20] VITALS: BP 123/77
[2025-02-26 11:28] VITALS: BP 138/69; PULSE 83; O2SAT 94
--- NOTE | 2025-02-26 11:30 | CM ---
CM reviewed chart and noted dc order
Bedside meeting with pt and dtr
Plan for home with [facility]- they have accepted her for service
IMM verbally reviewed, copy provided
Private duty caregivers have been increased
Discharge Disposition- home with [facility], family transport
--- NOTE | 2025-02-26 13:44 | W.PN.HOSP.TC ---
Today's Communication/Plan
-
discharge home with home PT today
Assessment / Plan
Assessment / Plan
Impression:
85-year-old female past medical history of TIA, hyperlipidemia, hypothyroidism, hypertension, presenting with difficulty walking and maintaining balance and weakness. Symptoms became more pronounced a few days ago. With standing she experiences
shakiness and loss of balance leading to sliding down to the floor. Denies falling completely. She has been having a strong odor from the urine. Patient had black stools a month ago followed by constipation. Patient was taking [id number]-[id number]
analgesic Anacin which is a combination of aspirin and caffeine a month and a half ago for headaches once a day occasionally 2. She recently also started taking meloxicam.
Admitted under hospitalist service, seen by GI, underwent EGD, status post blood transfusion, also started Rocephin for UTI.
Received IV iron, physical recommended home PT.
Culture came back shows E. coli, will be discharged on Ceftin.
Assessment/Plan:
Acute blood loss anemia secondary to GI bleeding
Iron deficiency anemia
upper GI bleeding from recent aspirin/meloxicam use.
Status post 2 units of blood transfusion.
Patient has low iron with a value less than 20 and a TIBC of 514 indicating iron deficiency anemia
Vitamin B12 normal at 671 on 02/22/2025
Protonix 40 twice daily
Clear liquid diet--> advance to full--> advance to low residue
Tolerating low residue.
Hold aspirin, NSAIDs
Status post EGD showed:
torturous esophagus, large hiatal hernia with a few Siva ulcers that were treated with thermal therapy, a few recently bleeding angioectasias of the stomach treated with argon plasma, a few gastric polyps, nonbleeding gastric ulcers with no
stigmata of bleeding, normal first portion of the duodenum and second portion of the duodenum, tongue of abnormal mucosa found just inferior to the gastroesophageal junction which appeared to be irritated but with no active bleed.
GI signed off
Severe sepsis with acute organ present on admission 2/2 Acute UTI
Acute organ dysfunction in form of acute metabolic encephalopathy
Continue Rocephin.
Culture with E. coli
Discharged on Ceftin.
Acute metabolic encephalopathy.
Secondary to sepsis/UTI
improved
Sore throat:
Possible secondary to endoscopy.
Improved.
Hyperlipidemia
Continue statin
Hypothyroidism
Continue levothyroxine
CODE STATUS: Full code
DVT prophylaxis: SCDS
Diet: Regular diet
Family communication: Discussed with daughter /son at bedside.
Disposition: discharge home with home PT today.
Total time spent on today's encounter was 55 minutes which included time spent in counseling the patient/family regarding diagnosis and treatment plan as listed above, goals of care, and symptom management. Case was discussed with nursing staff,
specialists, and care coordinators/case management. All labs and imaging personally reviewed by me. Remainder the time spent in detailed review of previous records, lab data, imaging, and other medical provider documentation.
Anticipated Discharge: Today
Subjective/Interval History
-
Date of Service: February 26, 2025
Patient seen and examined at bedside, denies any chest pain or shortness of breath, no abdominal pain, no nausea, no vomiting, no diarrhea or constipation.
Objective Data
-
Vital Signs:
Vital Signs
Temp Pulse Resp BP Pulse Ox
98.7 F 87 16 123/77 95
02/26/25 11:20 02/26/25 11:20 02/26/25 11:20 02/26/25 11:20 02/26/25 11:20
I&O
02/25/25 02/26/25 02/27/25
06:59 06:59 06:59
Intake Total 0 / 0
Balance 0 / 0
Physical Exam
-
General: Well Developed and No Apparent Distress
HEENT: Normocephalic, Atraumatic and Moist Mucous Membranes
Respiratory: Clear to Auscultation
Cardiac: Regular Rhythm and S1/S2; Negative Murmur, Rub or Gallop
GI: Soft, Nontender, Nondistended and Normal Bowel Sounds; Negative Organomegaly
Rectal: Deferred by Provider
Musculoskeletal: No Cyanosis and No Edema
Skin: Negative Rash
Neuro: Nonfocal/Grossly Intact
--- NOTE | 2025-02-26 13:47 | W.DCSUMMARY ---
Discharge Summary
Discharge Data
Date of Admission: 02/22/25
Date of Discharge: 02/26/25
Total time spent discharging patient (in min): 40
-
Pending Results: No
Hospital Course
Hospital course
85-year-old female past medical history of TIA, hyperlipidemia, hypothyroidism, hypertension, presenting with difficulty walking and maintaining balance and weakness. Symptoms became more pronounced a few days ago. With standing she experiences
shakiness and loss of balance leading to sliding down to the floor. Denies falling completely. She has been having a strong odor from the urine. Patient had black stools a month ago followed by constipation. Patient was taking [id number]
analgesic Anacin which is a combination of aspirin and caffeine a month and a half ago for headaches once a day occasionally 2. She recently also started taking meloxicam.
Admitted under hospitalist service, seen by GI, underwent EGD, status post blood transfusion, also started Rocephin for UTI.
Received IV iron, physical recommended home PT.
Culture came back shows E. coli, will be discharged on Ceftin.
During hospitalization patient was treated from the following
Acute blood loss anemia secondary to GI bleeding
Iron deficiency anemia
upper GI bleeding from recent aspirin/meloxicam use.
Status post 2 units of blood transfusion.
Patient has low iron with a value less than 20 and a TIBC of 514 indicating iron deficiency anemia
Vitamin B12 normal at 671 on 02/22/2025
Protonix 40 twice daily
Clear liquid diet--> advance to full--> advance to low residue
Tolerating low residue.
Hold aspirin, NSAIDs
Status post EGD showed:
torturous esophagus, large hiatal hernia with a few Siva ulcers that were treated with thermal therapy, a few recently bleeding angioectasias of the stomach treated with argon plasma, a few gastric polyps, nonbleeding gastric ulcers with no
stigmata of bleeding, normal first portion of the duodenum and second portion of the duodenum, tongue of abnormal mucosa found just inferior to the gastroesophageal junction which appeared to be irritated but with no active bleed.
GI signed off
Severe sepsis with acute organ present on admission 2/2 Acute UTI
Acute organ dysfunction in form of acute metabolic encephalopathy
Meets sepsis criteria with tachypnea and tachycardia
Continue Rocephin.
Culture with E. coli
Discharged on Ceftin.
Acute metabolic encephalopathy.
Secondary to sepsis/UTI
improved
Sore throat:
Possible secondary to endoscopy.
Improved.
Hyperlipidemia
Continue statin
Hypothyroidism
Continue levothyroxine
CODE STATUS: Full code
DVT prophylaxis: SCDS
Diet: Regular diet
Family communication: Discussed with daughter /son at bedside.
Disposition: discharge home with home PT today.
Total time spent on today's encounter was 40 minutes which included time spent in counseling the patient/family regarding diagnosis and treatment plan as listed above, goals of care, and symptom management. Case was discussed with nursing staff,
specialists, and care coordinators/case management. All labs and imaging personally reviewed by me. Remainder the time spent in detailed review of previous records, lab data, imaging, and other medical provider documentation.
Anticipated Discharge: Today
Discharge Plan
-
Patient Disposition: Home with Home Care
Discharge Diagnosis/Procedures: Acute blood loss anemia secondary to GI bleeding
Iron deficiency anemia.
Acute UTI.
Acute metabolic encephalopathy.
Diet: Low Residue
Activity: As tolerated
Other Services: PT and OT
Referrals:
PCP [Other] - in less than 1 week
Kristan Hernandez DO [Active, Gastroenterology] - 04/10/25 11:30 am
Prescriptions:
New
cefuroxime axetil 500 mg tablet
500 mg PO BID 5 Days Qty: 10 0RF
ferrous sulfate [FeroSul] 325 mg (65 mg iron) Tablet
325 mg PO BID 30 Days Qty: 60 0RF
Continued
polyethylene glycol 3350 17 GRAMS powder in packet
17 grams PO PRN PRN (Reason: constipation)
Multivitamin
1 tab PO DAILY
levothyroxine 100 mcg Tablet
100 mcg PO DAILY
duloxetine 60 mg Capsule,Delayed Release(Dr/Ec)
60 mg PO DAILY
Changed
omeprazole 40 mg Capsule,Delayed Release(Dr/Ec)
40 mg PO BID 30 Days Qty: 60 0RF
Discontinued
Synthroid:
125 mcg PO DAILY
Discharge Orders:
Discharge Patient (As Directed); Ordered 02/26/25
Ordered By: Juan R Mccoy
Discharge Date and Time
Discharge Date/Time: 02/26/25 12:20
Print Language: AFGHAN
== END 2025-02-26 12:20 | disposition home health service (06) | DRG 871 ==
LOC: 4 EAST ACU 14:17
PROVIDERS: Emergency Medicine; ADMITTING PHYSICIAN Hospitalist; ATTENDING PHYSICIAN General Practice; CONSULT PHYSICIAN Internal Medicine; EMERGENCY PHYSICIAN Emergency Medicine
PROC: 0W3P8ZZ Control Bleeding in Gastrointestinal Tract, Via Natural or Artificial Opening Endoscopic (ICD-10-PCS; 2025-02-22)
DX: A41.9 Sepsis, unspecified organism (principal); G93.41 Metabolic encephalopathy; K31.811 Angiodysplasia of stomach and duodenum with bleeding; D62 Acute posthemorrhagic anemia; N39.0 Urinary tract infection, site not specified; D68.32 Hemorrhagic disorder due to extrinsic circulating anticoagulants; R65.20 Severe sepsis without septic shock; K44.9 Diaphragmatic hernia without obstruction or gangrene; K25.9 Gastric ulcer, unspecified as acute or chronic, without hemorrhage or perforation; K31.7 Polyp of stomach and duodenum; E03.9 Hypothyroidism, unspecified; B96.20 Unspecified Escherichia coli [E. coli] as the cause of diseases classified elsewhere; Z86.73 Personal history of transient ischemic attack (TIA), and cerebral infarction without residual deficits; Z79.82 Long term (current) use of aspirin; Z79.890 Hormone replacement therapy; I10 Essential (primary) hypertension; E78.00 Pure hypercholesterolemia, unspecified; F41.9 Anxiety disorder, unspecified; K21.9 Gastro-esophageal reflux disease without esophagitis; Z79.1 Long term (current) use of non-steroidal anti-inflammatories (NSAID)
CPT/HCPCS: 36430; 80048; 80053; 81003; 81015; 82607; 82728; 82962; 83540; 83550; 83735; 85025; 85027; 86850; 86900; 86901; 86920; 87077; 87086; 87186; 87502; 87811; 93005; 96365; 96366; 97116; 97163; 97166; 97530; 99285; J2916; P9016

== ENCOUNTER 2025-03-05 11:15 | Emergency (ER) | payer OTHER, SELFPAY ==
[2025-03-05 11:21] VITALS: BP 137/69
[2025-03-05 12:03] VITALS: BP 115/50
[2025-03-05 12:09] LABS: Hematocrit 35.5 % (37.0-47.0); Hemoglobin 11.4 g/dL (12.0-16.0); Mean Corp Hgb Conc. 32.1 g/dL (33.0-37.0); Mean Corpuscular Volume 87.9 fL (81.0-99.0); Nucleated Red Blood Cells % 0 %; Platelet Count 262 10^3/uL (130-400); Red Cell Dist. Width 15.3 % (11.5-14.5)
[2025-03-05 12:26] LABS: Blood Urea Nitrogen 14 mg/dl (7-17); Calcium 9.4 mg/dl (8.4-10.2); Carbon Dioxide 25 mmol/L (22-30); Chloride 104 mmol/L (98-107); Glucose 114 mg/dl (70-99); Sodium 139 mmol/L (135-145); eGFR > 60.00
--- NOTE | 2025-03-05 12:37 | ED.GENMED ---
History of Present Illness
General
Chief Complaint: Rectal Bleeding
Source: patient and family
Time Seen by Provider: 03/05/25 12:24
History of Present Illness
History of Present Illness:
85-year-old female who was just hospitalized at [facility] due to upper GI bleed secondary to nonsteroidal use requiring blood transfusion, and UTI. Since being home, daughter, who she lives with, notes that she seems to be somewhat deconditioned,
requiring more assistance than usual to walk, although still able to do so. No specific other concerns or abnormalities noted. Then, this morning, patient noted hives on her back. Daughter gave her an antihistamine, and this is now improved. She
denies stridor, throat swelling, trouble swallowing, change in voice, chest pain, shortness of breath. Daughter states that she has been taking a new form of Tylenol and maybe this is the precipitant. They saw the primary care doctor today in
follow-up, and she was noted to have heme positive stools which prompted the primary care doctor to refer her to the emergency department. Of note, patient is taking aspirin. She typically has black stools since she has been on iron. She denies
abdominal pain, rectal bleeding, vomiting, fever, chills, dizziness, or other complaints.
Past History
Past History
ED Past Medical History: GERD, Hypercholesterolemia, Hyperthyroidism and Other (urethral prolapse, ataxia (unknown cause)); Negative CVA, HTN or NIDDM
ED Past Surgical History: Negative Cardiac
Social History
Tobacco: Non-smoker
Alcohol: None
Drug: None
Personal: Single
Living: with family
Employment: Not employed
Family History
Family History: Hypertension
Phy Exam
Physical Exam
Physical Exam:
GENERAL: Alert , in no apparent distress
EYE: pupils equal and reactive, conjunctiva pink
NECK: Supple, no significant adenopathy.
ENT: o/p clr, mmm.
CARDIAC: Regular rate and rhythm .
LUNGS: Clear breath sounds bilaterally, no acute respiratory distress, no wheezes/rales/rhonchi
ABDOMEN: Soft, without focal tenderness, no r/g, no cvat
NEUROLOGICAL: Alert and oriented, no focal neuro deficits
SKIN: Warm and dry, skin intact. There is a mild urticarial rash noted at back, along lateral L torso, and mid abd
MUSCULOSKELETAL: No edema, well perfused.
PSYCH: Normal and appropriate interaction.
Course
Orders/Labs/Results
Orders:
Orders
03/05/25 11:56
Type+Screen Urgent
Basic Metabolic Panel Urgent
Complete Blood Count/With Diff Urgent
Abnormal Lab Results
03/05/25
11:56
RBC 4.04 L 10^6/uL
(4.20-5.40)
Hgb 11.4 L g/dL
(12.0-16.0)
Hct 35.5 L %
(37.0-47.0)
MCHC 32.1 L g/dL
(33.0-37.0)
RDW 15.3 H %
(11.5-14.5)
Absolute Lymphs (auto) 0.7 L 10^3/uL
(1.2-3.4)
Immature Gran % 0.6 H %
(0-0.5)
Neutrophils % 78.1 H %
(42.2-75.2)
Lymphocytes % 11.1 L %
(20.5-51.1)
Glucose 114 H mg/dl
(70-99)
03/05/25 11:56
03/05/25 11:56
Vital Signs
Initial and Last Documented VS:
Initial Vital Signs
Temp Pulse Resp BP Pulse Ox
98.7 F 89 20 137/69 96
03/05/25 11:21 03/05/25 11:21 03/05/25 11:21 03/05/25 11:21 03/05/25 11:21
Last Documented Vital Signs
Temp Pulse Resp BP Pulse Ox
98.7 F 82 19 123/58 95
03/05/25 11:21 03/05/25 13:00 03/05/25 13:00 03/05/25 13:00 03/05/25 13:00
*Pulse Oximetry
SaO2: 94
Oxygen Mode of Delivery: Room air
Patient hypoxic: no
*Critical Care Note
Total Time (30-74mins, 75-104mins- exclusive of procedures): Not Applicable
Update Note
Update Note:
Patient presents to the Emergency Department with ____heme positive stools, rash
Number and Complexity of Problems Addressed at the Encounter
� Chronic conditions affecting care:
� Acute Exacerbation and/or Progression of Chronic Illness:
� Differential Diagnosis includes: Not limited to iron related heme positive stools, GI bleed, hemorrhoid, allergic reaction, etc. etc.
Amount and/or Complexity of Data to be Reviewed and Analyzed
� I performed an independent evaluation of and my interpretation is:
EKG:
CT:
Xrays:
Laboratory Studies: Hemoglobin stable at 11.4, labs otherwise unremarkable
Other:
� Review of other/old records reveals:
� Clinical information was obtained by an independent historian: Daughter Ella who is at bedside and offers details regarding her condition over the last week or so
� Prescriptions/Medications Considered but not given:
� Further testing considered but not performed:
Risk of Complications and/or Morbidity or Mortality of Patient Management
� Social determinants of health affecting care:
� Discussion with other providers (PCP, Hospitalists, Consultants, etc):
� Escalation of care including admission/observation vs risk of discharge considered: Case discussed with patient and daughter, I strongly suspect her heme positive stools related to her iron use. No signs or symptoms to suggest
active bleed, hemoglobin stable, vital stable, no bleeding noted, etc. Did advise patient to take nonsedating antihistamine for mild allergic reaction/urticaria noted at back and close follow-up.
ED Attending Note
-
Portions of this chart may have been created with voice recognition software.� Occasional wrong word or��sound alike� substitutions may have occurred due to the inherent limitations of voice recognition software.
Discharge Plan
Departure
Patient Disposition: Home (Routine Discharge)
Date of Disposition: 03/05/25
Time of Disposition: 12:57
Patient with high blood pressure during this ER visit?: Yes
Condition: Good
Discharge Problem:
Heme positive stool
Instructions: BLOOD PRESSURE
Prescriptions:
No Action
polyethylene glycol 3350 17 GRAMS powder in packet
17 grams PO HS
Theragen Tablet
1 tab PO DAILY Qty: 0
levothyroxine 100 mcg Tablet
100 mcg PO DAILY
duloxetine 60 mg Capsule,Delayed Release(Dr/Ec)
60 mg PO DAILY
acetaminophen [Tylenol] 325 mg Tablet
650 mg PO Q6HPRN PRN (Reason: mild pain)
bisacodyl [Dulcolax (bisacodyl)] 5 mg Tablet,Delayed Release (Dr/Ec)
5 mg PO HS
loratadine [Claritin] 10 mg Tablet
10 mg PO DAILYPRN PRN (Reason: rash)
omeprazole 40 mg capsule,delayed release(DR/EC)
40 mg PO BID
ferrous sulfate [FeroSul] 325 mg (65 mg iron) tablet
325 mg PO BID
Referrals:
Jennifer Paz MD [Family Provider, Internal Medicine] - Follow up in 2-3 days
Activity Restrictions/Additional Instructions:
IF YOU DEVELOP BLOOD IN YOUR STOOL, ABDOMINAL PAIN, DIZZINESS, FEVER, VOMITING, TROUBLE BREATHING, OR OTHER WORRISOME SIGNS, GO TO THE ER IMMEDIATELY!
Interventions
Interventions:
*Risk Screen - Suicide Last Done: 03/05/25 11:21
*General Assessment Last Done: 03/05/25 11:53
*Neglect/Abuse Screening Last Done: 03/05/25 11:21
*ED- Fall Risk Assessment Last Done: 03/05/25 11:53
*ED COVID-19 Vaccine History Last Done: 03/05/25 11:53
*ED Influenza Vaccine History Last Done: 03/05/25 11:53
*Nursing Disposition Last Done: 03/05/25 13:19
PR-Cuatta-Mrhjztmafk Assessment Last Done: 03/05/25 11:53
ED- Cardiac Assessment Last Done: 03/05/25 11:53
ED- Pulmonary Assessment Last Done: 03/05/25 11:53
Discharge Date and Time
Discharge Date/Time: 03/05/25 13:20
Print Language: PALESTINIAN
[2025-03-05 13:00] VITALS: BP 123/58
== END 2025-03-05 13:20 | disposition home or self-care (01) ==
LOC: EMR 11:15
PROVIDERS: EMERGENCY PHYSICIAN Emergency Medicine; FAMILY PHYSICIAN Internal Medicine
DX: R19.5 Other fecal abnormalities (principal); R03.0 Elevated blood-pressure reading, without diagnosis of hypertension; E78.00 Pure hypercholesterolemia, unspecified; E05.90 Thyrotoxicosis, unspecified without thyrotoxic crisis or storm; K21.9 Gastro-esophageal reflux disease without esophagitis; Z79.82 Long term (current) use of aspirin; L50.9 Urticaria, unspecified
CPT/HCPCS: 99283; 80048; 85025; 86850; 86900; 86901

== ENCOUNTER 2025-05-03 19:39 | Observation (INO) | payer OTHER, SELFPAY ==
[2025-05-03 14:35] VITALS: BP 147/83
[2025-05-03 15:11] LABS: Hematocrit 42.2 % (37.0-47.0); Hemoglobin 14.2 g/dL (12.0-16.0); Mean Corp Hgb Conc. 33.6 g/dL (33.0-37.0); Mean Corpuscular Volume 84.1 fL (81.0-99.0); Nucleated Red Blood Cells % 0 %; Platelet Count 294 10^3/uL (130-400); Red Cell Dist. Width 16.8 % (11.5-14.5)
[2025-05-03 15:25] LABS: COVID-19 Antigen Negative (Negative)
[2025-05-03 15:30] LABS: ALT (SGPT) 15 U/L (0-35); AST (SGOT) 25 U/L (14-36); Albumin 4.7 g/dl (3.5-5.0); Alkaline Phosphatase 69 U/L (38-126); Blood Urea Nitrogen 20 mg/dl (7-17); Calcium 10.1 mg/dl (8.4-10.2); Carbon Dioxide 25 mmol/L (22-30); Glucose 97 mg/dl (70-99); Potassium 4.6 mmol/L (3.5-5.1); Sodium 138 mmol/L (135-145); Total Protein 8.2 g/dl (6.3-8.2); eGFR > 60.00
[2025-05-03 15:37] LABS: Chloride 104 mmol/L (98-107)
[2025-05-03 15:39] LABS: Troponin I < 0.012 ng/ml
[2025-05-03 16:22] LABS: Urine Character Cloudy (Clear)
[2025-05-03 16:50] VITALS: BMI 26.4
[2025-05-03 17:40] LABS: Urine Red Blood Cell 0-2 /HPF (0-2); Urine White Cell 30-40 /HPF (0-5)
[2025-05-03 18:00] VITALS: BP 153/72
--- NOTE | 2025-05-03 18:05 | ED.GENMED ---
History of Present Illness
General
Chief Complaint: Weakness
Source: patient and family
Exam Limitations: none
Time Seen by Provider: 05/03/25 16:57
Nursing documentation reviewed up to this point in time: agreed with
History of Present Illness
History of Present Illness:
Patient is 85-year-old female who lives with family brought for evaluation. Daughter reports patient has been weak today intermittently confused and irritable. She does have history of previous UTI and daughter is concerned about this. Patient is
hard of hearing however denies any abdominal pain. Family reports no cough no other sick contacts at home. Patient complains of chronic leg pain but this is not new. Triage note stated patient complained of exertional shortness of breath however
family reports this is not new this is chronic. No prior history of CHF. No lower extremity swelling. No chest pain. No recent fever chills or cough.
Past History
Past History
ED Past Medical History: GERD, Hypercholesterolemia, Hyperthyroidism and Other (urethral prolapse, ataxia (unknown cause)); Negative CVA, HTN or NIDDM
ED Past Surgical History: Negative Cardiac
Social History
Tobacco: Non-smoker
Alcohol: None
Drug: None
Personal: Single
Living: with family
Employment: Not employed
Family History
Family History: Hypertension
Phy Exam
General Physical Exam
General Presentation: no apparent distress
General Skin: warm and dry
General Habitus: elderly
General Mental: alert
General Hydration: dry mucous membranes
Cardiovascular Exam
Cardiovascular Exam: regular rate/rhythm, no murmur and normal peripheral pulses
Pulmonary Exam
Pulmonary Exam: lungs clear and no respiratory distress
Gastrointestinal Exam
Gastrointestinal Exam: non tender and soft
Neurological Exam
Neurological Exam: alert
Musculoskeletal Exam
Musculoskeletal Exam: full ROM
Skin Exam
Skin Exam: normal color and warm/dry
Psychiatric Exam
Psychiatric Exam: normal mood/affect
Course
Orders/Labs/Results
Orders:
Orders
05/03/25 14:39
Electrocardiogram (*1) Urgent
Reason for Study: Shortness of Breath
EKG- Treatment ONCE
05/03/25 14:53
COVID-19 Antigen Urgent
Source: Nasal Swab
Complete Blood Count/With Diff Urgent
Comprehensive Metabolic Panel Urgent
Troponin I Urgent
INF RAPID [Influenza A+B Rapid Molecular] Urgent
BON Source: Nasal Swab
Specimen Description:
Date Specimen was Collected: 05/03/25
Time Specimen was Collected: 14:39
05/03/25 15:22
Urinalysis Reflex To Culture Urgent
Date Specimen was Collected: 05/03/25
Time Specimen was Collected: 14:39
Urine Microscopic Reflex Cult Urgent
Urine Culture Urgent
BON Source: U
Specimen Description:
Date Specimen was Collected: 05/03/25
Time Specimen was Collected: 14:39
05/03/25 18:50
CefTRIAXone [Rocephin] 1,000 mg IV NOW STA
Abnormal Lab Results
05/03/25 05/03/25
14:53 15:22
RDW 16.8 H %
(11.5-14.5)
Absolute Neuts (auto) 7.4 H 10^3/uL
(1.4-6.5)
Absolute Lymphs (auto) 1.1 L 10^3/uL
(1.2-3.4)
Absolute Monos (auto) 0.7 H 10^3/uL
(0.1-0.6)
Neutrophils % 80.3 H %
(42.2-75.2)
Lymphocytes % 11.7 L %
(20.5-51.1)
BUN 20 H mg/dl
(7-17)
Ur Occult Blood Reflex 3+ A
(Negative)
Urine Nitrite (Reflex) Positive A
(Negative)
Leukocyte Esterase Rfl 3+ A
(Negative)
Urine WBC (Reflex) 30-40 A /HPF
(0-5)
Urine Bacteria (Reflex) Many A
(Negative)
Urine Albumin (Reflex) 2+ A
(Neg - Trace)
05/03/25 14:53
05/03/25 14:53
Vital Signs
Initial and Last Documented VS:
Initial Vital Signs
Temp Pulse Resp BP Pulse Ox
97.7 F 82 20 147/83 97
05/03/25 14:35 05/03/25 14:35 05/03/25 14:35 05/03/25 14:35 05/03/25 14:35
Last Documented Vital Signs
Temp Pulse Resp BP Pulse Ox
97.7 F 89 21 153/72 95
05/03/25 14:35 05/03/25 18:45 05/03/25 18:45 05/03/25 18:00 05/03/25 18:45
Research Assistant consulted with Physician
Research Assistant consulted with physician?: Yes
Name of Physician Consulted: Kareem
MDM/Problems Addressed
Differential Diagnosis Includes:
Not limited to weakness dehydration UTI
MDM/Problems Addressed:
85 yr old female with UTI. Family reports patient was irritable today and weak. Triage note documents the patient collapsed they report she did not fall the ground but she look like she was going to fall because of weakness and they caught her.
Patient is awake alert. She does have frequent UTI. Urine is obviously infected. She is afebrile with normal white count. With weakness and UTI would recommend admission
Chronic conditions affecting care:
frequent UTI.
*Pulse Oximetry
SaO2: 97
Oxygen Mode of Delivery: Room air
Patient hypoxic: no
*Critical Care Note
Total Time (30-74mins, 75-104mins- exclusive of procedures): Not Applicable
ED Attending Note
-
Portions of this chart may have been created with voice recognition software.� Occasional wrong word or��sound alike� substitutions may have occurred due to the inherent limitations of voice recognition software.
Discharge Plan
Departure
Patient Disposition: Admit
Date of Disposition: 05/03/25
Time of Disposition: 18:54
Admit to: Med/Surg
Admit to doctor: hospitalist
Presentation/result/management discussed w/ accepting MD/DO: Hospitalist
Patient with high blood pressure during this ER visit?: Yes
Condition: Fair
Covid-19: Not Applicable
Discharge Problem:
UTI (urinary tract infection), Acute UTI, Weakness
Prescriptions:
No Action
polyethylene glycol 3350 17 GRAMS powder in packet
17 grams PO HS
Theragen Tablet
1 tab PO DAILY Qty: 0
levothyroxine 100 mcg Tablet
100 mcg PO DAILY
duloxetine 60 mg Capsule,Delayed Release(Dr/Ec)
60 mg PO DAILY
acetaminophen [Tylenol] 325 mg Tablet
650 mg PO Q6HPRN PRN (Reason: mild pain)
bisacodyl [Dulcolax (bisacodyl)] 5 mg Tablet,Delayed Release (Dr/Ec)
5 mg PO HS
loratadine [Claritin] 10 mg Tablet
10 mg PO DAILYPRN PRN (Reason: rash)
omeprazole 40 mg capsule,delayed release(DR/EC)
40 mg PO BID
ferrous sulfate [FeroSul] 325 mg (65 mg iron) tablet
325 mg PO BID
Referrals:
Jennifer Paz MD [Family Provider, Internal Medicine]
Interventions
Interventions:
*Neglect/Abuse Screening Last Done: 05/03/25 14:35
*Risk Screen - Suicide (C-SSRS) Last Done: 05/03/25 14:35
Discharge Date and Time
Print Language: YORUBA
--- NOTE | 2025-05-03 19:00 | HPS.HSE ---
Family Physician
-
Family Physician: Jennifer Paz
Chief Complaint
-
Weakness
History of Present Illness
This is a 85-year-old female with past medical history significant for hypothyroid, GERD, hypertension, hyperlipidemia, recent admission for GI bleed in the setting of NSAID use as well as sepsis secondary to urinary tract infection will now
presents to the emergency department with complaint of weakness and increased irritability where she almost had a fall.
Patient reports being in usual state of health up until this morning. When she woke up she felt weak and had some trouble walking. Daughter who is primary caregiver reported that she had foul-smelling urine. These consolation of symptoms was
similar to previous episode few months ago when she had a urinary tract infection and this was complicated by sepsis. With said to bring it to the emergency department. Patient self reports bilateral groin discomfort. She denies flank pain. She
denies any dysuria frequency or urgency. She reports chronic intermittent incontinence. She also reports a chronic left lower extremity discomfort which she has been attributed to poor mobility. She completed physical therapy and early April
and feels like she will still require additional therapy. She denies any diarrhea. She denies any cough shortness of breath fevers or chills.
In the emergency department she was afebrile, blood pressure was 150/72, pulse was 89 and oxygen saturation was 95%. ECG shows normal sinus rhythm at a rate of [address] or T wave changes.
Troponin was negative. UA was markedly positive with nitrites leukocyte esterase and WBCs. She also has bacteria.
COVID test was negative. Influenza was negative.
Medical History
Past Medical History
Past Medical History: Reports Other (TIA, hyperlipidemia, hypothyroidism, hypertension)
Past Surgical History: Reports None
Social History
Tobacco: Non-smoker
Alcohol: None
Drug: None
Family History
Family History: Not pertinent
Allergies / Home Medications
Allergies reflects when Allergies were last updated in [facility].
Home Medications with original date entered in [facility]
Allergy/Medication List:
Allergies
Allergy/AdvReac Type Severity Reaction Status Date / Time
No Known Allergies Allergy Verified 05/03/25 14:35
Home Medications
polyethylene glycol 3350 17 gram oral powder packet 17 grams PO HS Constipation 05/12/12
therapeutic multivitamin 1 tab PO DAILY Supplement ##0 05/12/12
duloxetine 60 mg capsule,delayed release 60 mg PO DAILY Mental Health/Anxiety 02/22/25
levothyroxine 100 mcg tablet 100 mcg PO DAILY Thyroid 02/22/25
acetaminophen 325 mg tablet (Tylenol) 650 mg PO Q6HPRN PRN mild pain 03/05/25
bisacodyl 5 mg tablet,delayed release (Dulcolax (bisacodyl)) 5 mg PO HS Constipation 03/05/25
ferrous sulfate 325 mg (65 mg iron) tablet (FeroSul) 325 mg PO BID Supplement 03/05/25
loratadine 10 mg tablet (Claritin) 10 mg PO DAILYPRN PRN rash 03/05/25
omeprazole 40 mg capsule,delayed release 40 mg PO BID gerd 03/05/25
Review of Systems
-
History Source: Patient
A 12 point ROS was completed and negative except as noted: Yes
Constitutional: Reports No Symptoms
EENT: Reports No Symptoms
Respiratory: Reports No Symptoms
Cardiac: Reports No Symptoms
Abdomen/GI: Reports See HPI
: Reports No Symptoms
Musculoskeletal: Reports No Symptoms
Skin: Reports No Symptoms
Neurological: Reports No Symptoms
Endocrine: Reports No Symptoms
Hematologic/Lymphatic: Reports No Symptoms
Psych: Reports No Symptoms
Physical Exam
Vital Signs
Vital Signs
Temp Pulse Resp BP Pulse Ox
97.7 F 89 21 153/72 95
05/03/25 14:35 05/03/25 18:45 05/03/25 18:45 05/03/25 18:00 05/03/25 18:45
Physical Exam
General: Well Developed, Well Nourished and No Apparent Distress
HEENT: NormoCephalic, Moist mucous membranes and Atraumatic
Respiratory: Clear
Cardiac: S1/S2 and Regular Rhythm; No Murmur or Rub
GI: Soft, Non Tender, Non Distended and Normal Bowel Sounds; No Organomegaly
Rectal: Deferred by Provider
Musculoskeletal: No Clubbing, No Cyanosis and No Edema
Skin: No Rash
Neuro: Nonfocal/grossly intact
Psych: Calm
Laboratory Results
-
05/03/25 14:53
05/03/25 14:53
Laboratory Results
Total Bilirubin 0.5 mg/dl (0.2-1.3) 05/03/25 14:53
AST 25 U/L (14-36) 05/03/25 14:53
ALT 15 U/L (0-35) 05/03/25 14:53
Alkaline Phosphatase 69 U/L (38-126) 05/03/25 14:53
Troponin I < 0.012 ng/ml 05/03/25 14:53
Data Reviewed
-
Medical Tests (Nuc Med, Echo, EKG etc): Image Personally Visualized and interpreted
Lab Data: Labs Reviewed by me
Old Records: Reviewed
Impression/Plan
-
IMPRESSION:
85-year-old with past medical history significant for hypertension, hypothyroid, hyperlipidemia, recent GI bleed in setting of NSAID use, recent urinary tract infection with sepsis who presents to the emergency department with weakness and increased
irritability, found to have markedly positive UA but patient has remained afebrile and hemodynamically stable. There has been no leukocytosis. She reports some mild shortness of breath, however lungs are clear, ECG was unremarkable. Troponin was
negative.
PLAN:
acute cystitis
� Admit to MedSurg observation
� Urine culture sent
� Blood cultures if spikes fever
� Start ceftriaxone IV, previously had sensitive E. coli
� IV fluids
� Orthostatic vital signs
� PT consult
Hypothyroid
� Continue Synthroid
History of GI bleed
� Continue PPI
DVT prophylaxis�SCDs for now
CODE STATUS�full code
[2025-05-03] MEDS: ROCEPHIN 1000 MG IV (19:06)
[2025-05-03 20:43] VITALS: BP 154/98
--- NOTE | 2025-05-03 20:54 | PTCARENOTE ---
Recieved pt. from ED. Pt. Pulloved over from stretcher to bed. Pt. oriented to unit and call greene placed within reach. pt. care ongoing.
[2025-05-03] MEDS: PROTONIX 40 MG PO (21:02)
[2025-05-03] MEDS: MIRALAX 17 GRAMS PO (21:03)
[2025-05-03 22:49] VITALS: BP 157/90
[2025-05-04] MEDS: SYNTHROID 100 MCG PO (05:23)
[2025-05-04 05:35] VITALS: BMI 27.1
[2025-05-04 07:25] VITALS: BP 148/83
[2025-05-04 08:41] LABS: Hematocrit 37.8 % (37.0-47.0); Hemoglobin 12.8 g/dL (12.0-16.0); Mean Corp Hgb Conc. 33.9 g/dL (33.0-37.0); Mean Corpuscular Volume 84.4 fL (81.0-99.0); Platelet Count 267 10^3/uL (130-400); Red Cell Dist. Width 16.9 % (11.5-14.5)
[2025-05-04 09:11] LABS: Blood Urea Nitrogen 18 mg/dl (7-17); Calcium 9.6 mg/dl (8.4-10.2); Carbon Dioxide 23 mmol/L (22-30); Chloride 107 mmol/L (98-107); Estimated Creatinine Clearance 55 ml/min; Glucose 95 mg/dl (70-99); Potassium 4.3 mmol/L (3.5-5.1); Sodium 138 mmol/L (135-145); eGFR > 60.00
[2025-05-04] MEDS: PROTONIX 40 MG PO ×2 (09:27→20:29)
[2025-05-04] MEDS: CYMBALTA DELAYED RELEASE 60 MG PO (09:27)
--- NOTE | 2025-05-04 10:26 | CM ---
Patient seen bedside w/ son, Gabriel. Initial assessment completed. Patient is a 85-year-old female with past medical history significant for hypothyroid, GERD, hypertension, hyperlipidemia, recent admission for GI bleed in the setting of NSAID use
as well as sepsis secondary to urinary tract infection will now presents to the emergency department with complaint of weakness and increased irritability.
Patient resides w/ daughter, Ella, in a 2STH, 3 steps to enter. Patient has a first floor set up. Patient ambulates w/ RW and w/c. Has additional toilet rails and shower chair. At home rehab hx, [facility] hx following last admission in February. No SNF
hx.
Address, points of contact and insurance verified
PCP: Jennifer Paz
Pharmacy: [facility]
Patient admitted under obs services. [facility] form verbally reviewed, copy provided, copy on chart
PT ordered, will watch for recommendations
Plan: Await PT to see to determine d/c plan
--- NOTE | 2025-05-04 12:13 | W.PN.HOSP.TC ---
Addendum entered and electronically signed by Taiwo Strong DO 05/04/25 13:46:
Updated patient's daughter Ella on the phone.
We discussed her main diagnosis is being severe deconditioning due to aging and sedentary lifestyle. Main treatment will be PT/OT.
Ella mentions specifically that her mother has not had any genitourinary symptoms and therefore the main diagnosis is asymptomatic bacteriuria. Moving forward, we will discontinue further antibiotics, family aware.
Start SNF process.
Original Note:
Today's Communication/Plan
-
PT/OT
ID consult
Assessment / Plan
Assessment / Plan
Gen-AAOx3, NAD
HEENT-NC, AT, anicteric, clear oral mm
Neck-supple
CV-reg, no M, +S1/S2
Lungs-clear B/L
Abd-soft, NT, ND
Ext-no edema
Musculoskeletal-no cyanosis, clubbing
Skin-warm and dry
Neuro-grossly non-focal
Psych-calm, cooperative
Ambulatory dysfunction -with near fall. Suspect due to severe deconditioning and aging. PT/OT consulted. Family states that she is sedentary at baseline.
Asymptomatic pyuria/bacteriuria -doubt urinary tract infection clinically, patient denies genitourinary symptoms. No signs or symptoms of sepsis. Weakness and ambulatory dysfunction is not from UTI.
Urine culture from 05/03 shows >100k gram-negative bacilli. Again, I suspect that this is asymptomatic bacteriuria. She is likely colonized.
On review of records from February 2025 hospitalization here, I see no clear evidence of true UTI. I doubt that she was septic at the time as she was afebrile with a normal WBC count. She may have been confused but she probably has some underlying
cognitive impairment. At the time she did not have any genitourinary symptoms and currently does not have symptoms either.
Hypothyroidism -on levothyroxine. Check TSH.
Essential hypertension -uncontrolled. Unclear why she is not on blood pressure meds at home. Unclear if family checks her pressures at home.
Hyperlipidemia -unclear why she is not on a statin.
Recent GI bleed -underwent EGD 02/22/2025. 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 Few gastric polyps. Nonbleeding gastric ulcers with no stigmata of bleeding.
Noted to be anemic during that hospitalization in February with hemoglobin of 7.9, transfused 2 units of blood. Currently hemoglobin normal.
Continue daily PPI.
History of strokes -noted on prior CT head February 2019. In addition there was mention of stable moderate diffuse atrophy.
She may have some underlying cognitive impairment that will need to be formally evaluated as an outpatient.
Unclear why she does not take aspirin.
Full code
Updated patient's sons at the bedside. I called patient's daughter on the phone and left a voicemail.
Anticipated Discharge: Within 24 hours
Subjective/Interval History
-
Date of Service: May 04, 2025
Patient seen and examined. Feels better. No complaints. Denies genitourinary symptoms.
Objective Data
-
Labs:
Laboratory Results
05/04/25
07:42
WBC 6.1
Hgb 12.8
Hct 37.8
Plt Count 267
Sodium 138
Potassium 4.3
Chloride 107
Carbon Dioxide 23
BUN 18 H
Creatinine 0.7
Glucose 95
Calcium 9.6
Vital Signs:
Vital Signs
Temp Pulse Resp BP Pulse Ox
98.1 F 89 18 148/83 93
05/04/25 07:25 05/04/25 07:25 05/04/25 07:25 05/04/25 07:25 05/04/25 07:25
Review of Systems
-
History Source: Patient
All other systems: Reviewed and negative
[2025-05-04 13:11] VITALS: BP 123/85; PULSE 98; O2SAT 93
[2025-05-04 13:57] LABS: TSH 2.25 uIU/ml (0.47-4.68)
[2025-05-04 15:10] VITALS: BP 153/84
[2025-05-04] MEDS: MIRALAX 17 GRAMS PO (21:24)
[2025-05-04 23:13] VITALS: BP 150/75
[2025-05-05] MEDS: SYNTHROID 100 MCG PO (05:18)
[2025-05-05 07:00] VITALS: BP 147/79
[2025-05-05] MEDS: PROTONIX 40 MG PO ×2 (08:30→20:01)
[2025-05-05] MEDS: CYMBALTA DELAYED RELEASE 60 MG PO (08:30)
--- NOTE | 2025-05-05 11:42 | W.PN.HOSP.TC ---
Today's Communication/Plan
-
Resume aspirin
Discharge planning
Assessment / Plan
Assessment / Plan
Gen-AAOx3, NAD
HEENT-NC, AT, anicteric, clear oral mm
Neck-supple
CV-reg, no M, +S1/S2
Lungs-clear B/L
Abd-soft, NT, ND
Ext-no edema
Musculoskeletal-no cyanosis, clubbing
Skin-warm and dry
Neuro-grossly non-focal
Psych-calm, cooperative
Ambulatory dysfunction -with near fall. Suspect due to severe deconditioning and aging. PT/OT consulted. Family states that she is sedentary at baseline, often sits for hours at a time.
Asymptomatic pyuria/bacteriuria -doubt urinary tract infection clinically, patient denies genitourinary symptoms. No signs or symptoms of sepsis. Weakness and ambulatory dysfunction is not from UTI.
Urine culture from 05/03 shows >100k gram-negative bacilli. Again, I suspect that this is asymptomatic bacteriuria. She is likely colonized. Antibiotics discontinued.
On review of records from February 2025 hospitalization here, I see no clear evidence of true UTI. I doubt that she was septic at the time as she was afebrile with a normal WBC count. She may have been confused but she probably has some underlying
cognitive impairment. At the time she did not have any genitourinary symptoms and currently does not have symptoms either.
Hypothyroidism -on levothyroxine. TSH 2.25.
Elevated blood pressure -possibly due to essential hypertension although I do not see it documented on previous records. Reviewed [facility] as well. Not on blood pressure meds at home. Will defer back to PCP.
Hyperlipidemia -unclear why she is not on a statin.
Recent GI bleed -underwent EGD 02/22/2025. 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 Few gastric polyps. Nonbleeding gastric ulcers with no stigmata of bleeding.
Noted to be anemic during that hospitalization in February with hemoglobin of 7.9, transfused 2 units of blood. Currently hemoglobin normal.
Continue daily PPI.
History of strokes -noted on prior CT head February 2019. In addition there was mention of stable moderate diffuse atrophy.
She may have some underlying cognitive impairment that will need to be formally evaluated as an outpatient.
She was on aspirin prior to her February hospitalization when she was treated for GI bleed, anemia.
Hemoglobin now normal. Will resume low-dose aspirin.
Full code
Dispo -medically stable for discharge to SNF. Case management aware.
Updated patient's family at the bedside.
Anticipated Discharge: Within 24 hours
Subjective/Interval History
-
Date of Service: May 05, 2025
Patient seen and examined. No complaints.
Objective Data
-
Vital Signs:
Vital Signs
Temp Pulse Resp BP Pulse Ox
97.9 F 87 16 147/79 93
05/05/25 07:00 05/05/25 07:00 05/05/25 07:00 05/05/25 07:00 05/05/25 07:00
I&O
05/04/25 05/05/25 05/06/25
06:59 06:59 06:59
Intake Total 300 / 300
Balance 300 / 300
Review of Systems
-
History Source: Patient
All other systems: Reviewed and negative
--- NOTE | 2025-05-05 11:51 | CM ---
Patient medically stable for SNF
Met w/ patient bedside, discussed SNF options. Patient agreeable for CM to send referrals locally.
[facility]errals placed to [facility] and [facility]
Patient will need insurance auth once there's an accepting facility
Plan: SNF
[2025-05-05] MEDS: ASPIR LOW (ENTERIC COATED) 81 MG PO (12:00)
[2025-05-05 15:00] VITALS: BP 153/81
[2025-05-05 15:12] VITALS: BP 175/79
[2025-05-05] MEDS: MIRALAX 17 GRAMS PO (21:03)
[2025-05-05 23:10] VITALS: BP 133/73
[2025-05-06] MEDS: SYNTHROID 100 MCG PO (05:57)
[2025-05-06 07:00] VITALS: BP 131/81
[2025-05-06] MEDS: CYMBALTA DELAYED RELEASE 60 MG PO (07:46)
[2025-05-06] MEDS: ASPIR LOW (ENTERIC COATED) 81 MG PO (07:46)
[2025-05-06] MEDS: PROTONIX 40 MG PO (07:46)
[2025-05-06 12:36] VITALS: BP 141/78; PULSE 111; O2SAT 94
--- NOTE | 2025-05-06 13:49 | W.DCSUMMARY ---
Discharge Summary
Discharge Data
Date of Admission: 05/03/25
Date of Discharge: 05/06/25
Total time spent discharging patient (in min): 44
-
Pending Results: No
Hospital Course
Ms. Fish is an 85-year-old female with a medical history of GI bleed (secondary to NSAID use), hypertension, hypothyroidism, and GERD who presented with weakness. She was initially admitted for treatment of acute cystitis due to findings of pyuria
and bacteriuria. However she had no urinary symptoms and so antibiotics were discontinued. She continued to clinically improve with IV fluids and physical therapy. Her hemoglobin and blood pressure remained stable. She had no evidence of GI
bleeding currently. She was restarted on low-dose aspirin. She has been discharged to SNF.
General: No Apparent Distress, Comfortable and Conversant
HEENT: NormoCephalic, Moist mucous membranes, Atraumatic
Respiratory: Clear and Non Labored Respirations
Cardiac: S1/S2 and Regular Rhythm; No Rub or Gallop
GI: Soft, Non Tender, Non Distended and Normal Bowel Sounds
Musculoskeletal: No Edema, no deformity
: NO Morel
Neuro: Awake, Alert, Nonfocal/grossly intact
Psych: Calm and cooperative
Discharge Plan
-
Patient Disposition: Fpc/SNF
Discharge Diagnosis/Procedures: Ambulatory dysfunction
Asymptomatic pyuria/bacteriuria
Activity Restrictions/Additional Instructions:
You were admitted for treatment of weakness and difficulty walking. This is likely due to deconditioning. You were evaluated by physical and Occupational Therapy who recommended ongoing therapy at a residential facility. You were incidentally
found to have bacteria in your urine, however this does not necessarily mean you have an infection. You had no signs and symptoms of a urinary tract infection. Despite initially being started on antibiotics for urinary tract infection, antibiotics
were discontinued. You remained afebrile and did not have any urinary symptoms. You improved clinically and were medically stable for discharge to rehab.
Referrals:
Jennifer Paz MD [Family Provider, Internal Medicine]
Prescriptions:
New
polyethylene glycol 3350 17 gram Powder In Packet
17 g PO HS Qty: 14 0RF
aspirin 81 mg Tablet,Delayed Release (Dr/Ec)
81 mg PO DAILY Qty: 30 0RF
Continued
levothyroxine 100 mcg Tablet
100 mcg PO DAILY
duloxetine 60 mg Capsule,Delayed Release(Dr/Ec)
60 mg PO HS
acetaminophen [Tylenol] 325 mg Tablet
650 mg PO Q6HPRN PRN (Reason: mild pain)
omeprazole 40 mg capsule,delayed release(DR/EC)
40 mg PO DAILY
cetirizine 10 mg Tablet
10 mg PO DAILY PRN (Reason: allergies)
Discharge Orders:
Discharge Patient (As Directed); Ordered 05/06/25
Ordered By: Siva Cutler
Discharge Date and Time
Print Language: MICRONESIAN
[2025-05-06 13:52] LABS: COVID-19 Antigen Negative (Negative)
--- NOTE | 2025-05-06 14:35 | CM ---
CM reviewed chart, patient seen in chair, family visiting.
Patient accepted at [facility]- family agreeable.
Auth initiated/approved via [employer]- approved 05/06-05/10, NRD 05/10, call for updated [phone], auth #[id number].
Ambulance auth #[id number].
Covid negative.
Patient scheduled for 6:00 p.m. ambulance transport- update to liaison at [facility].
Plan; [facility] SNF, 6:00 p.m. ambulance transport
[facility]
Report: [phone]
[2025-05-06 15:00] VITALS: BP 142/76
== END 2025-05-06 18:04 ==
LOC: 4 WEST ACU 19:39
PROVIDERS: Emergency Medicine; ADMITTING PHYSICIAN Internal Medicine; ATTENDING PHYSICIAN Internal Medicine; EMERGENCY PHYSICIAN Emergency Medicine; FAMILY PHYSICIAN Internal Medicine
DX: R53.1 Weakness (principal); R82.71 Bacteriuria; R82.81 Pyuria; R26.2 Difficulty in walking, not elsewhere classified; H91.90 Unspecified hearing loss, unspecified ear; G89.29 Other chronic pain; M79.606 Pain in leg, unspecified; R06.02 Shortness of breath; K21.9 Gastro-esophageal reflux disease without esophagitis; E78.00 Pure hypercholesterolemia, unspecified; R41.0 Disorientation, unspecified; I10 Essential (primary) hypertension; E03.9 Hypothyroidism, unspecified; K31.7 Polyp of stomach and duodenum; Z11.52 Encounter for screening for COVID-19; Z87.440 Personal history of urinary (tract) infections; Z79.890 Hormone replacement therapy; Z87.19 Personal history of other diseases of the digestive system; Z82.49 Family history of ischemic heart disease and other diseases of the circulatory system; Z86.73 Personal history of transient ischemic attack (TIA), and cerebral infarction without residual deficits
CPT/HCPCS: 80048; 80053; 81003; 81015; 84443; 84484; 85025; 85027; 87077; 87086; 87186; 87502; 87811; 93005; 96374; 97116; 97163; 97167; 99284; G0378